=== PATIENT | male | born 1975 | race Hispanic/Latino ===

== ENCOUNTER 2019-06-02 13:37 | Emergency (ER) | payer SELFPAY ==
[2019-06-02] MEDS ORDERED: ONDANSETRON HCL 4 MG/2 ML VIAL ONE (14:00)
[2019-06-02] MEDS ORDERED: KETOROLAC TROMETHAMINE 30MG/ML ONE (14:00)
[2019-06-02] MEDS ORDERED: DICYCLOMINE HCL 10 MG/ML 2ML AMP IM ONE (14:00)
[2019-06-02] MEDS ORDERED: SODIUM CHLORIDE 0.9% 1000ML 1,000 ML IV ONE ×2 (14:02→16:04)
[2019-06-02 14:23] LABS: BASOPHILS % (AUTO) 0.5 % (0.0-5.0); HEMATOCRIT 48.5 % (42-54); LYMPHOCYTES % (AUTO) 9.4 % (21.0-51.0); MEAN CORPUSCULAR HEMOGLOBIN 31.3 pg (27.0-33.0); MEAN CORPUSCULAR HGB CONC 34.3 g/dL (32.0-36.0); MEAN CORPUSCULAR VOLUME 91.2 fL (79-99); MONOCYTES % (AUTO) 3.1 % (3.0-13.0); PLATELET COUNT (AUTO) 233 K/uL (130-400); RED BLOOD CELL COUNT(AUTO) 5.32 MIL/uL (4.50-6.20); RED CELL DISTRIBUTION WIDTH 12.9 % (11.0-15.5); WHITE BLOOD COUNT (AUTO) 10.6 K/uL (4.8-10.8)
[2019-06-02 14:27] LABS: CREATININE 0.9 mg/dL (0.5-1.5); POTASSIUM 3.8 mmol/L (3.5-5.1)
[2019-06-02 14:31] LABS: BILIRUBIN,TOTAL 0.7 mg/dL (0.2-1.0); TOTAL PROTEIN, SERUM 7.8 g/dL (6.0-8.3)
[2019-06-02] MEDS ORDERED: MORPHINE SULFATE 4 MG/1ML SYG ONE (15:22)
[2019-06-02] MEDS ORDERED: IOHEXOL-350 75 ML VIAL IV ONE (15:36)
[2019-06-02 15:46] LABS: APPEARANCE,URINE Clear (CLEAR); BILIRUBIN,URINE Negative (NEGATIVE); COLOR,URINE Yellow (YELLOW); GLUCOSE, URINE (UA) Negative (NEGATIVE); KETONES,URINE Negative (NEGATIVE); LEUKOCYTE ESTERASE ,URINE Negative (NEGATIVE); NITRATE,URINE Negative (NEGATIVE); OCCULT BLOOD,URINE Negative (NEGATIVE); PROTEIN,URINE Negative (NEGATIVE)
[2019-06-02] MEDS ORDERED: HYOSCYAMINE SULFATE 0.125 MG TAB.SUBL SL ONE (16:54)
[2019-06-02] MEDS ORDERED: MAG HYDROX/AL HYDROX/SIMETH ES 30 ML SUSP UDCUP ONE (18:33)
[2019-06-02] MEDS ORDERED: LIDOCAINE HCL 2% VISCOUS 15 ML UDCUP ONE (18:33)
== END 2019-06-02 18:54 | disposition home or self-care (01) ==
LOC: EDH 13:37
DX: K52.9 Noninfective gastroenteritis and colitis, unspecified (principal); R74.8 Abnormal levels of other serum enzymes; E78.5 Hyperlipidemia, unspecified; I10 Essential (primary) hypertension; Z72.0 Tobacco use
CPT/HCPCS: 36415; 74177; 76705; 80053; 81003; 83690; 85025; 87804 ×2; 96361; 96365; 96366; 96375; 99285; J0500; J1885; J2270; J2405; J7030 ×2; Q9967

== ENCOUNTER 2020-04-12 11:16 | Emergency (ER) | payer OTHER ==
[2020-04-12] MEDS ORDERED: KETOROLAC TROMETHAMINE 60 MG/2 ML VIAL ONE (11:52)
[2020-04-12] MEDS ORDERED: HYDROCODONE/ACETAMINOPHEN 10/325 MG TAB ONE (11:53)
== END 2020-04-12 12:07 | disposition home or self-care (01) ==
LOC: EDH 11:16
DX: K64.4 Residual hemorrhoidal skin tags (principal); E78.5 Hyperlipidemia, unspecified; I10 Essential (primary) hypertension; Z90.49 Acquired absence of other specified parts of digestive tract; Z79.899 Other long term (current) drug therapy; Z98.890 Other specified postprocedural states; Z72.0 Tobacco use
CPT/HCPCS: 96372; 99283; J1885

== ENCOUNTER 2020-06-20 20:05 | Emergency (ER) | payer OTHER ==
[2020-06-20 20:42] LABS: BASOPHILS % (AUTO) 0.5 % (0.0-5.0); HEMATOCRIT 44.2 % (42-54); LYMPHOCYTES % (AUTO) 22.7 % (21.0-51.0); MEAN CORPUSCULAR HEMOGLOBIN 30.8 pg (27.0-33.0); MEAN CORPUSCULAR HGB CONC 34.4 g/dL (32.0-36.0); MEAN CORPUSCULAR VOLUME 89.7 fL (79-99); MONOCYTES % (AUTO) 9.5 % (3.0-13.0); PLATELET COUNT (AUTO) 267 K/uL (130-400); RED BLOOD CELL COUNT(AUTO) 4.93 MIL/uL (4.50-6.20); RED CELL DISTRIBUTION WIDTH 12.7 % (11.0-15.5); WHITE BLOOD COUNT (AUTO) 10.4 K/uL (4.8-10.8)
[2020-06-20 20:53] LABS: INR 0.97 (0.85-1.15); PARTIAL THROMBOPLASTIN TIME 28.2 SEC (26.3-35.5); PROTHROMBIN TIME 10.5 SEC (9.6-11.6)
[2020-06-20] MEDS ORDERED: IBUPROFEN 400 MG TABLET ONE (20:53)
[2020-06-20 20:59] LABS: CREATININE 0.8 mg/dL (0.5-1.5); POTASSIUM 3.7 mmol/L (3.5-5.1)
[2020-06-20 21:04] LABS: ALBUMIN 3.9 g/dL (3.5-5.0); BILIRUBIN,TOTAL 0.3 mg/dL (0.2-1.0); TOTAL PROTEIN, SERUM 7.8 g/dL (6.0-8.3)
== END 2020-06-20 23:26 | disposition home or self-care (01) ==
LOC: EDH 20:05
DX: G44.209 Tension-type headache, unspecified, not intractable (principal); I10 Essential (primary) hypertension; E78.5 Hyperlipidemia, unspecified; Z90.49 Acquired absence of other specified parts of digestive tract
CPT/HCPCS: 36415; 71045; 80053; 82550; 84484; 85025; 85610; 85730; 93005

== ENCOUNTER 2025-05-03 14:24 | Emergency (ER) | payer SELFPAY ==
[~2025-05-03] VITALS: Ht 172.7 cm; Wt 127.5 kg
[2025-05-03] MEDS: LIDOCAINE HCL 1% 20 ML VIAL INJ STA (14:53)
[2025-05-03] MEDS: HYDROcodone/APAP 5/325 1 TAB TABLET PO STA (14:54)
[2025-05-03] MEDS: teTANUS/diphthERIA TOXOID [ADULT] 0.5 ML VIAL IM ONE (14:57)
--- NOTE | 2025-05-03 15:00 | NUR ---
LACERATION WOUND CARE DONE TO 5TH DIGIT ON RT HAND WITH BETADINE,PT TOLERATED WELL. LACERATION TRAY SET UP IN ER BED 01.
--- NOTE | 2025-05-03 16:00 | HMCIMG ---
HAND 3+VWS RT HISTORY: Fifth digit injury COMPARISON: None TECHNIQUE: 3 images of the right hand were obtained. FINDINGS: There is no acute displaced fracture or dislocation. Interphalangeal joint space narrowing is seen. No evidence of radiopaque foreign body is seen. Minimal degenerative changes as IMPRESSION: 1. Findings as described above.
[2025-05-03] MEDS ORDERED: CEPH500B PO (16:33)
--- NOTE | 2025-05-03 16:33 | ERN ---
ED Note History of Present Illness Stated Complaint: LT FINGER LACERATION DUE TO MECHANICAL WORK Chief Complaint: Finger Injury Time Seen by MD: 14:25 Time Seen by Midlevel: 14:28 Dictation: 49-year-old Year old male coming in for laceration to the right 5th digit with a motor. Unknown if he is up-to-date with his tetanus. No other injuries. Allergies: Coded Allergies: No Known Allergies (Unverified Allergy, Unknown, 06/02/19) Past Medical History Past Medical History: Hypertension Additional Past Medical Hx: CHRONINC BACK PAIN Surgical History: Cholecystectomy Surgical History Other: BACK INJURY Review of System Dictation Constitutional: Negative for fever,chills, and weight loss Eyes: Negative for injury, pain,redness, and discharge ENT: Negative for injury,pain or swelling Cardiovascular: Negative for chest pain, palpitations, and edema Respiratory: Negative for shortness of breath, cough, and wheezing, Abdomen/GI: Negative for abdominal pain, nausea, vomiting, diarrhea, and constipation Back: Negative for injury and pain : Negative for injury, bleeding and discharge MS/Extremity: Negative for injury and deformity Skin: Negative for rash, and discoloration, laceration to right 5th digit Neuro: Negative for headache, weakness, numbness, tingling, and seizure Psych: Negative for suicide ideation, homicidal ideation, and hallucinations Review of Systems: was completed Initial Vital Sign VS Vital Signs Date Time Temp Pulse Resp B/P (MAP) Pulse Ox O2 Delivery O2 Flow Rate FiO2 05/03/25 14:33 98.2 100 20 155/98 99 Room Air 0 Physical Exam Dictation General: awake, alert, NAD Head/Face: Normocephalic, atraumatic Eyes: PERRL, EOMI, vision at baseline ENT: oral cavity clear, TMs clear, no signs of infection Neck: Trachea midline, supple, no nuchal rigidity Cardiovascular: RRR, normal S1/S2, No MRGs, no JVD Respiratory: CTAB, no respiratory distress, No rales or wheezes Abdomen: Soft, non-tender, non-distended, normal bowel sounds, no guarding or rebound. Skin: Warm, dry, normal turgor, no rash, irregular laceration noted to the right 5th digit on the dorsal aspect between the D IP and PIP joints MS/Extremity: Pulses equal, no cyanosis, neurovascular intact, FROM, Neuro: COAx4, GCS 15, strength 5/5, CN 2-12 intact, normal cerebellar exam, normal gait, Psych: Normal behavior, mood, and affect normal Results (Laboratory/Radiology) X-RAY Comment: [facility] [address] [place] [address] IMAGING REPORT Signed PATIENT: GAGANDEEP MONROE MR#: [id number] : 1975 SEX: M AGE: 49 LOCATION: [facility] ORDER 38 STATUS: REG ER REPORT#: [id number] SERVICE 35 REASON: 5th digit injury ORDERING PHYSICIAN: JEFF MENDES NP PROCEDURE: HAND 3V RT - HAND 3+VWS RT HAND 3+VWS RT HISTORY: Fifth digit injury COMPARISON: None TECHNIQUE: 3 images of the right hand were obtained. FINDINGS: There is no acute displaced fracture or dislocation. Interphalangeal joint space narrowing is seen. No evidence of radiopaque foreign body is seen. Minimal degenerative changes as IMPRESSION: 1. Findings as described above. DICTATED BY: MORENA MUÑOZ MD DATE: 05/03/25 1557 ELECTRONICALLY SIGNED BY: MORENA MUÑOZ MD DATE: 05/03/25 1600 ED Course ED Course Orders Procedure Category Date Status Time Hand 3+Vws Rt RAD 05/03/25 Resulted 14:36 Tetanus,Diphtheria PHA 05/03/25 Complete Tox [Adult] (Diphther 15:00 Hydrocodone/Apap PHA 05/03/25 Complete 5/325 ([place]ancock 5/325mg) 14:36 Lidocaine Hcl 1% 20ml PHA 05/03/25 Complete Vial (Lidocaine Hc 14:36 *Nursing CPOE 05/03/25 Transmitted Communication: 14:36 Mag/Alum/Simeth 30ml PHA 05/03/25 Complete (Maalox Plus 30ml) 15:30 Lidocaine Hcl 2% PHA 05/03/25 Complete Viscous (Lidocaine Hcl 15:30 Current Medications Medications (Trade) Dose Ordered Sig/Flaco Route PRN Reason Start Time Stop Time Status Last Admin Dose Admin Acetaminophen/ Hydrocodone Bitart (NORco 5/325MG) 1 tab ONCE STAT PO 05/03/25 14:36 05/03/25 14:41 DC 05/03/25 14:54 Al Hydroxide/Mg Hydroxide (MAALox PLUS 30ML) 30 ml ONCE ONCE PO 05/03/25 15:30 05/03/25 15:31 DC Lidocaine HCl (Lidocaine HCl 1% 20ml Vial) ONCE STAT INJ 05/03/25 14:36 05/03/25 14:41 DC 05/03/25 14:53 Lidocaine HCl (Lidocaine HCl 2% Viscous) 10 ml ONCE ONCE PO 05/03/25 15:30 05/03/25 15:31 DC Tetanus/ Diphtheria Toxoids Adsorbed (DiphthERIA-teTANUS TOXOID [ADULT]/ DECAVAC) 0.5 ml ONCE ONCE IM 05/03/25 15:00 05/03/25 15:01 DC 05/03/25 14:57 Vital Signs Date Time Temp Pulse Resp B/P (MAP) Pulse Ox O2 Delivery O2 Flow Rate FiO2 05/03/25 14:33 98.2 100 20 155/98 99 Room Air 0 Medical Decision Making MDM MDM: 49-year-old Year old male coming in for laceration to the right 5th digit with a motor. Unknown if he is up-to-date with his tetanus. No other injuries. See procedure note for wound repair. Patient received Discussed findings with the patient. Educated patient he needs sick return in 7-10 days to remove sutures. Educated on wound care and when to return back to the ER. Patient verbalized understanding, answered all questions. Differential diagnosis: Tendon laceration, tendon involvement, laceration, metacarpal fracture Rationale: Tests considered and ordered secondary to shared decision making include: Previous outside records reviewed: Old ER visits. Risk of complication and/or morbidity or mortality of patient management: None Medications-Per medication reconciliation Need for hospitalization: Patient does not meet criteria for hospitalization. Need for emergency major/minor surgery: No There are no social concerns with this patient. Prescription drug management Prescriptions will include symptomatic care Patient's prior external medical records from other ER visits were reviewed by me as indicated. Prior testing and results from previous visits were reviewed. Prior tests were taken into account with medical decision making and resource utilization, independent historian/historians were used to obtain complete medical history. I independently interpreted the test that were performed, results were reviewed by me and considered findings on radiology if ordered. Medical management and examination interpretation discussions were had by me with other qualified healthcare professionals as indicated for the patient's care. Procedure Wound Location: upper extremity (Right 5th digit) Wound Length (cm): 5 Wound's Depth, Shape: superficial, irregular, flap Wound Explored: clean Betadine Prep?: Yes Anesthesia: 1% Lidocaine Volume Anesthetic (ccs): 5 Wound Debrided: moderate Wound Repaired With: sutures Suture Size/Type: 3:0 Number of Sutures: 4 Layer Closure?: Yes Deep Layer Suture Size/Type: chromic Number Deep Layer Sutures: 2 DX & DISP Disposition: Discharge Departure Impression: Primary Impression: Laceration of finger Condition: Stable Scripts Cephalexin Monohydrate (Keflex) 500 Mg Cap 500 MG PO QID for 7 Days, #28 CAP Prov: JEFF MENDES NP 05/03/25 Additional Instructions: Keep wound dry cleaned. Return to the hospital in 7-10 days to remove sutures. Return sooner if you notice any symptoms or signs of infection. Referrals: SELF,REFERRAL (PCP) Time of Disposition: 16:32 I have reviewed the case, and I agree with, Diagnosis and Plan JEFF MENDES NP May 03, 2025 16:33
[2025-05-03] MEDS: LIDOCAINE HCL 2% VISCOUS 15 ML UDCUP PO ONE (17:05)
[2025-05-03] MEDS: MAG/ALUM/SIMETH 30 ML UDCUP PO ONE (17:05)
[2025-05-03 17:10] VITALS: BP 144/59; PULSE 89; RESP 20; TEMP 98.5; O2SAT 98
== END 2025-05-03 17:11 | disposition home or self-care (01) ==
LOC: EDH 14:24
DX: S61.216A Laceration without foreign body of right little finger without damage to nail, initial encounter (principal); I10 Essential (primary) hypertension; Z90.49 Acquired absence of other specified parts of digestive tract; W31.9XXA Contact with unspecified machinery, initial encounter; Y93.89 Activity, other specified; Y92.89 Other specified places as the place of occurrence of the external cause; Y99.8 Other external cause status
CPT/HCPCS: 12002; 12042; 73130; 90471; 90714; 99283; 99284

== ENCOUNTER 2025-05-11 13:24 | Emergency (ER) | payer SELFPAY ==
[~2025-05-11] VITALS: Ht 172.7 cm; Wt 127.0 kg
[~2025-05-11 13:24] MED LIST: CEPH500B PO
[2025-05-11 13:36] VITALS: BP 146/81; PULSE 92; RESP 16; TEMP 98.1; O2SAT 98
--- NOTE | 2025-05-11 13:51 | NUR ---
SUTURES REMOVED, WOUND DRESSED AND SPLINTED, PT TOLERATED WELL
--- NOTE | 2025-05-11 14:00 | ERN ---
General Chief Complaint: Suture/Staple Removal Stated Complaint: STICHES REMOVAL Time Seen by Midlevel: 13:30 Source: patient History of Present Illness Initial Comments 49-year-old male presenting to the emergency department for a suture removal. The patient had a laceration to his right 5th digit. Three sutures were placed eight days ago. Allergies: Coded Allergies: No Known Allergies (Unverified Allergy, Unknown, 06/02/19) Home Meds Active Scripts Cephalexin Monohydrate (Keflex) 500 Mg Cap, 500 MG PO QID for 7 Days, #28 CAP Prov:JEFF MENDES [employer] 05/03/25 Past Medical History Past Medical History: Hypertension Medical History Other: CHRONINC BACK PAIN Past Surgical History: Cholecystectomy Surgical History Other: BACK INJURY ROS Dictation CONSTITUTIONAL: Negative except for HPI HEAD/FACE: Negative except for HPI EENT: Negative except for HPI RESPIRATORY: Negative except for HPI GASTROINTESTINAL/ABDOMINAL: Negative except for HPI GENITOURINARY: Negative except for HPI MUSCULOSKELETAL: Negative except for HPI INTEGUMENTARY: Negative except for HPI NEUROLOGICAL/PSYCH: Negative except for HPI HEMATOLOGIC/LYMPHATIC: Negative except for HPI All Systems Negative, Except as noted above. 13 point review of systems assessed and all negative except for above. Physical Exam Physical Exam Dictation PHYSICAL EXAM: GENERAL: alert,, awake oriented x 3 HEENT: EOMI, Sclera non icteric, moist mucosa NECK: Supple, no JVD, trachea midline LUNGS: Clear breath sounds bilaterally. No wheezes HEART: Regular rate and rhythm. Normal S1 and S2, without murmurs ABD: Abdomen soft, nontender. Bowel sounds present EXT: No clubbing or cyanosis, SKIN: There is a well-healing laceration to the right 5th digit with no signs of infection NEURO: Alert and oriented to person, follows commands MDM MDM: 49-year-old male presenting to the emergency department for a suture removal. The patient had a laceration to his right 5th digit. Three sutures were placed eight days ago. On examination there is a well-healing laceration to the right 5th digit. No signs of infection noted. Three sutures were removed with no complications Differential diagnosis: Suture removal, wound evaluation, cellulitis There are no social concerns with this patient. Prescription drug management Prescriptions will include: None Medical management and examination interpretation discussions were had by me with other qualified healthcare professionals as indicated for the patient's care. ED Course Vital Signs Date Time Temp Pulse Resp B/P (MAP) Pulse Ox O2 Delivery O2 Flow Rate FiO2 05/11/25 13:36 98.1 92 16 146/81 98 Room Air* 0 21 05/11/25 13:28 98.1 92 16 146/81 98 Room Air 0 DX & DISP Disposition: Discharge Departure Impression: Primary Impression: Visit for suture removal Condition: Stable Referrals: SELF,REFERRAL (PCP) Time of Disposition: 13:59 I have reviewed the case, and I agree with, Diagnosis and Plan I performed the substantive portion of the visit. I have reviewed and personally made and approve the management plan that is documented in the note by myself or the CAITLYN. I acknowledge for responsibility for the patient's management plan. ASHLEY ESPAÑA May 11, 2025 14:00
== END 2025-05-11 14:05 | disposition home or self-care (01) ==
LOC: EDH 13:24
DX: S61.216D Laceration without foreign body of right little finger without damage to nail, subsequent encounter (principal); I10 Essential (primary) hypertension; Z90.49 Acquired absence of other specified parts of digestive tract; X58.XXXD Exposure to other specified factors, subsequent encounter
CPT/HCPCS: 99281